=== PATIENT | female | born 1960 | race Caucasian/White ===

== ENCOUNTER 2016-09-24 23:08 | Emergency (ER) | payer OTHER ==
[~2016-09-24] VITALS: Ht 172.7 cm; Wt 77.7 kg
[~2016-09-24 23:08] MED LIST: ASPI81TA45 PO; FERR325T PO; FLEX10TA PO; GABA100C4 PO; LOSA50TA PO; METO25 PO; PREG25 PO; PREM0.3T PO; PRIL20CA PO; SIMV20 PO; TRAM50 PO
[2016-09-24 23:10] VITALS: BP 130/75; PULSE 75; RESP 16; TEMP 97.6; O2SAT 99
[2016-09-24 23:16] VITALS: BP 130/75; PULSE 75; RESP 16; TEMP 97.6; O2SAT 99
--- NOTE | 2016-09-24 23:44 | PD ---
HPI Chief Complaint: uti Time Seen by Provider: 23:41 Travel History International Travel<30 days: No Contact w/Intl Traveler<30days: No Traveled to known affect area: No History of Present Illness HPI 56-year-old female presents to the emergency department by private transportation for complaint of possible urinary tract infection. According the patient since 6 PM she's had urinary frequency urgency and dysuria. Patient reports she has history of recurrent urinary tract infections. Patient also reports she has history of stage IV kidney disease. Patient denies fever chills nausea vomiting or flank pain. Patient denies generalized abdominal pain or localized right lower quadrant left lower quadrant abdominal pain. Patient does note some suprapubic pressure with urination. No vaginal bleeding and no hematuria. Patient rates discomfort as moderate with urination. PFSH Past Medical History Narrative Medical Stage IV kidney [id number], recurrent UTI dyslipidemia hypertension GERD migraine hysterectomy tubal ligation tonsillectomy alcohol use nursing notes reviewed Autoimmune Disease: No Blood Disorders: No Heart Rhythm Problems: Yes Cancer: No Cardiovascular Problems: Yes High Cholesterol: Yes Diabetes: No Diminished Hearing: No Endocrine: No Gastrointestinal Disorders: Yes (REFLUX) GERD: Yes Genitourinary: Yes (FREQUENT UTI, URINARY INCONTINENCE) Headaches: Yes Hepatitis: No Hiatal Hernia: No Hypertension: Yes Immune Disorder: No Musculoskeletal: Yes (NECK, ARTHRITIS) Neurologic: Yes (MIGRAINES, CERVICAL SPINE HERNIATED DISK) Psychiatric: No Reproductive: Yes (HYSTERECTOMY) Respiratory: No Migraines: Yes Renal Failure: Yes (insuff. per pt) Thyroid Disease: No PNEUMOCCOCAL Vaccine (Year): 3 Menopausal: Yes Tubal Ligation: Yes Past Surgical History AICD: No Body Medical Devices: DENTAL POST Genitourinary Surgery: No Gynecologic Surgery: Yes ( TL, HYSTERECTOMY) Hysterectomy: Yes Joint Replacement: No Pacemaker: No Tonsillectomy: Yes (1967) Other Surgery: Yes Social History Alcohol Use: Yes (S) Tobacco Use: No Substance Use: No Allergies-Medications (Allergen,Severity, Reaction): Coded Allergies: Penicillin (Verified Allergy, Severe, SWELLS, 10/09/15) Sulfa (Verified Allergy, Severe, ITCH, 10/09/15) Reported Meds & Prescriptions Reported Meds & Active Scripts Active Ultram (Tramadol HCl) 50 Mg Tab 1 Tab PO Q8HR PRN FOR PAIN Reported Gabapentin 100 Mg Cap 100 Mg PO TID Lyrica (Pregabalin) 25 Mg Cap 25 Mg PO BID Prilosec 20 mg (Omeprazole) 20 Mg Cap 20 Mg PO DAILY Losartan Potassium 50 MG (Losartan Potassium) 50 Mg Tab 50 Mg PO DAILY Iron (Ferrous Sulfate) 325 Mg Tab 325 Mg PO BID Metoprolol Tartrate 25 mg (Metoprolol Tartrate) 25 Mg Tab 12.5 Mg PO BID Aspirin 81 mg EC Lo-Dose (Aspirin) 81 Mg Tab 81 Mg PO DAILY Flexeril (Cyclobenzaprine HCl) 10 Mg Tab 10 Mg PO BID Premarin (Estrogens Conjugated) 0.3 Mg Tab 0.9 Mg PO DAILY Zocor (Simvastatin) 20 Mg Tab 20 Mg PO HS Review of Systems Except as stated in HPI: all other systems reviewed are Neg General / Constitutional: No: Fever, Chills Cardiovascular: No: Chest Pain or Discomfort Respiratory: No: Shortness of Breath Gastrointestinal: No: Abdominal Pain Genitourinary: Positive: Urgency, Frequency, Dysuria, No: Hematuria, Flank Pain Musculoskeletal: No: Myalgias, Arthralgias Skin: No Rash Neurologic: No: Weakness Hematologic/Lymphatic: No: Lymph Node Enlargement Physical Exam Narrative GENERAL: Well-developed well-nourished female in acute distress no respiratory distress SKIN: Warm and dry. HEAD: Normocephalic. EYES: No scleral icterus. No injection or drainage. NECK: Supple, trachea midline. No JVD or lymphadenopathy. CARDIOVASCULAR: Regular rate and rhythm without murmurs, gallops, or rubs. RESPIRATORY: Breath sounds equal bilaterally. No accessory muscle use. GASTROINTESTINAL: Abdomen soft, non-tender, nondistended. MUSCULOSKELETAL: No cyanosis, or edema. BACK: Nontender without obvious deformity. No CVA tenderness. Data Data Last Documented VS Vital Signs Date Time Temp Pulse Resp B/P Pulse Ox O2 Delivery O2 Flow Rate FiO2 09/24/16 23:16 97.6 75 16 130/75 99 Orders Urinalysis - C+S If Indicated (09/24/16 23:39) Urine Culture (09/24/16 23:22) Nitrofurantoin Monohyd Macrocr (Macrobid (09/25/16 00:30) Phenazopyridine (Pyridium) (09/25/16 00:30) Cephalexin (Keflex) (09/25/16 00:45) Labs Laboratory Tests Test 09/24/16 23:22 Urine Collection Type CLEAN CATCH Urine Color YELLOW Urine Turbidity MARKED Urine pH 6.5 Urine Specific [place] 1.009 Urine Protein 100 mg/dL Urine Glucose (UA) NEG mg/dL Urine Ketones NEG mg/dL Urine Occult Blood LARGE Urine Nitrite NEG Urine Bilirubin NEG Urine Leukocyte Esterase LARGE Urine RBC 15-19 /hpf Urine WBC 50-99 /hpf Urine WBC Clumps MANY Urine Squamous Epithelial 0-5 /hpf Cells Urine Bacteria OCC /hpf Microscopic Urinalysis Comment CULTURE INDICATED MDM Medical Decision Making Medical Screen Exam Complete: Yes Emergency Medical Condition: Yes Medical Record Reviewed: Yes Interpretation(s) Urinalysis: Positive for leukocyte esterase positive for white blood cells white blood cells and bacteria culture indicated Differential Diagnosis Dysuria, UTI, pyelonephritis, diverticulitis, renal colic Narrative Course Urine specimen collected and sent for resulting Patient is aware of abnormal urinalysis and given first dose of oral antibiotic Macrobid and Keflex as well as Pyridium for bladder spasm patient states that she has allergy to penicillin she can take cephalexin without adverse reaction. Diagnosis Primary Impression: UTI (urinary tract infection) Referrals: Primary Care Physician 2 days Patient Instructions: General Instructions Additional Instructions: Increase fluid hydration Follow-up with primary care provider and manager emergency department Return to the emergency for any concerns or change in condition Take acetaminophen/Tylenol every 4 hours as needed for fever 100.4F or greater Med/Other Pt SpecificInfo: Prescription(s) given Scripts Phenazopyridine (Pyridium)100 Mg [id number] Mg PO Q8H PRN (DYSURIA) #6 TAB Ref 0 Prov:Patsy Johnson MD 09/25/16 Nitrofurantoin Monohydrate Macrocrystals (Macrobid)100 Mg [id number] Mg PO BID 10 Days Ref 0 Prov:Patsy Johnson MD 09/25/16 Cephalexin (Keflex)500 Mg [id number] Mg PO Q6H 7 Days Ref 0 Prov:Patsy Johnson MD 09/25/16 Disposition: 01 DISCHARGE HOME Condition: Stable Patsy Johnson MD Sep 24, 2016 23:44
[2016-09-25 00:04] LABS: BLOOD, URINE LARGE (NEG); GLUCOSE,URINE NEG (NEG); KETONE, URINE NEG (NEG); NITRITE,URINE NEG (NEG); PH, URINE 6.5 (5.0-8.5)
[2016-09-25 00:11] LABS: METHOD OF COLLECTION CLEAN CATCH; URINE COLOR YELLOW (YELLW/STRAW)
[2016-09-25 00:12] LABS: BACTERIA, URINE OCC /hpf; RBC, URINE 15-19 /hpf (0-3); SQUAMOUS EPITHELIAL CELL URINE 0-5 /hpf (0-5)
[2016-09-25 00:13] LABS: COMMENT (UR) CULTURE INDICATED; CULTURE IF INDICATED CULTURE INDICATED
[2016-09-25] MEDS ORDERED: NITROFURANTOIN MONOHYD MACROCR 100 MG CAP PO ONE (00:30)
[2016-09-25] MEDS ORDERED: PHENAZOPYRIDINE HCL 100 MG TAB PO ONE (00:30)
[2016-09-25] MEDS ORDERED: CEPH-460 PO (00:36)
[2016-09-25] MEDS ORDERED: MACR100C2 PO (00:36)
[2016-09-25] MEDS ORDERED: PHEN0.4T PO (00:36)
[2016-09-25] MEDS ORDERED: CEPHALEXIN MONOHYDRATE 500 MG CAP PO ONE (00:45)
== END 2016-09-25 01:11 | disposition home or self-care (01) ==
LOC: PHED 23:08
DX: N39.0 Urinary tract infection, site not specified (principal); B96.89 Other specified bacterial agents as the cause of diseases classified elsewhere
CPT/HCPCS: 81001; 87086; 99283

== ENCOUNTER 2016-11-26 17:02 | Emergency (ER) | payer OTHER ==
[~2016-11-26] VITALS: Ht 172.7 cm; Wt 78.6 kg
[~2016-11-26 17:02] MED LIST changes: +CEPH-460 PO; -FLEX10TA PO; -GABA100C4 PO; +MACR100C2 PO; +PHEN0.4T PO; -TRAM50 PO
[2016-11-26 17:23] VITALS: BP 150/90; PULSE 66; RESP 18; TEMP 98.4; O2SAT 99
[2016-11-26] MEDS ORDERED: PROCHLORPERAZINE INJ 10 MG/2 ML VIAL IV PUSH ONE (17:45)
[2016-11-26] MEDS ORDERED: diphenhydrAMINE HCL 50 MG/ML VIAL IV PUSH ONE (17:45)
--- NOTE | 2016-11-26 17:57 | PD ---
HPI . Eye pain Chief Complaint: Eye Problems/Injury Time Seen by Provider: 17:38 Travel History International Travel<30 days: No Contact w/Intl Traveler<30days: No Traveled to known affect area: No History of Present Illness HPI Patient presents with an injury to her right eye and with a migraine headache. She states it all started a few hours ago when she inadvertently got some sunscreen in her right eye. She wears contacts. She immediately removed the contact. However, she scraped her eye as she was reading the contact. She states that she has subsequently developed a migraine headache. This is affecting the vision in her left eye. PFSH Past Medical History Autoimmune Disease: No Blood Disorders: No Heart Rhythm Problems: Yes Cancer: No Cardiovascular Problems: Yes High Cholesterol: Yes Diabetes: No Diminished Hearing: No Endocrine: No Gastrointestinal Disorders: Yes (REFLUX) GERD: Yes Genitourinary: Yes (FREQUENT UTI, URINARY INCONTINENCE) Headaches: Yes Hepatitis: No Hiatal Hernia: No Hypertension: Yes Immune Disorder: No Musculoskeletal: Yes (NECK, ARTHRITIS) Neurologic: Yes (MIGRAINES, CERVICAL SPINE HERNIATED DISK) Psychiatric: No Reproductive: Yes (HYSTERECTOMY) Respiratory: No Immunizations Current: No Migraines: Yes Renal Failure: Yes (STAGE 4/WILL BE PLACED ON LIST) Thyroid Disease: No PNEUMOCCOCAL Vaccine (Year): 3 Menopausal: Yes Tubal Ligation: Yes Past Surgical History AICD: No Body Medical Devices: DENTAL POST Genitourinary Surgery: No Gynecologic Surgery: Yes Hysterectomy: Yes Joint Replacement: No Pacemaker: No Tonsillectomy: Yes (1967) Other Surgery: Yes Social History Alcohol Use: No Tobacco Use: No Substance Use: No Allergies-Medications (Allergen,Severity, Reaction): Coded Allergies: Penicillin (Verified Allergy, Severe, SWELLS, 09/25/16) Sulfa (Verified Allergy, Severe, ITCH, 09/25/16) Reported Meds & Prescriptions Reported Meds & Active Scripts Active Pyridium (Phenazopyridine HCl) 100 Mg Tab 100 Mg PO Q8H PRN Macrobid (Nitrofurantoin Monoh/Nitrofur Macro) 100 Mg Cap 100 Mg PO BID 10 Days Keflex (Cephalexin) 500 Mg Cap 500 Mg PO Q6H 7 Days Reported Lyrica (Pregabalin) 25 Mg Cap 25 Mg PO BID Prilosec 20 mg (Omeprazole) 20 Mg Cap 20 Mg PO DAILY Losartan Potassium 50 MG (Losartan Potassium) 50 Mg Tab 50 Mg PO DAILY Iron (Ferrous Sulfate) 325 Mg Tab 325 Mg PO BID Metoprolol Tartrate 25 mg (Metoprolol Tartrate) 25 Mg Tab 12.5 Mg PO BID Aspirin 81 mg EC Lo-Dose (Aspirin) 81 Mg Tab 81 Mg PO DAILY Premarin (Estrogens Conjugated) 0.3 Mg Tab 0.9 Mg PO DAILY Zocor (Simvastatin) 20 Mg Tab 20 Mg PO HS Review of Systems Except as stated in HPI: all other systems reviewed are Neg General / Constitutional: No: Fever Eyes: Positive: Blurred Vision, Photophobia, Foreign Body Sensation (left thigh ), Pain (both eyes) HENT: Positive: Headaches Physical Exam Narrative GENERAL: Patient is wearing sunglasses in a darkened exam room. SKIN: Warm and dry. CARDIOVASCULAR: Regular rate and rhythm. RESPIRATORY: No accessory muscle use. MUSCULOSKELETAL: No obvious deformities. No edema. NEUROLOGICAL: Awake and alert. No obvious cranial nerve deficits. Motor grossly within normal limits. Normal speech. PSYCHIATRIC: Appropriate mood and affect; insight and judgment normal. Please see the PA's note for her eye exam. Data Data Last Documented VS Vital Signs Date Time Temp Pulse Resp B/P Pulse Ox O2 Delivery O2 Flow Rate FiO2 11/26/16 17:23 98.4 66 18 150/90 99 Orders ^ Saline Lock (11/26/16 17:40) Prochlorperazine Inj (Compazine Inj) (11/26/16 17:45) Diphenhydramine Inj (Benadryl Inj) (11/26/16 17:45) MDM Medical Decision Making Medical Screen Exam Complete: Yes Emergency Medical Condition: Yes Differential Diagnosis Differential diagnosis of headache includes but is not limited to migraine, muscle contraction headache, brain tumor, brain bleed Differential diagnosis of eye pain includes but is not limited to conjunctivitis , chemical irritation, corneal abrasion, acute angle-closure glaucoma. Narrative Course Patient presents with 2 problems. First problem is that she has injured her left eye. The second is that she has subsequently developed a migraine headache. I will treat the migraine first. The eye injury will then be evaluated by the PA. Diagnosis Primary Impression: Headache Qualified Code: R51 - Acute nonintractable headache, unspecified headache type Cary Ho MD Nov 26, 2016 17:57
[2016-11-26] MEDS ORDERED: IRON18TA2 PO (18:09)
[2016-11-26] MEDS ORDERED: CYCL5TAB PO (18:09)
[2016-11-26] MEDS ORDERED: METO25TA3 PO (18:09)
[2016-11-26] MEDS ORDERED: PRIL20CA9 PO (18:09)
[2016-11-26] MEDS ORDERED: ASPI-110 PO (18:09)
[2016-11-26] MEDS ORDERED: BUTA1CAP PO (18:09)
[2016-11-26] MEDS ORDERED: PREG25 PO (18:09)
[2016-11-26] MEDS ORDERED: ESTR.9 PO (18:09)
[2016-11-26] MEDS ORDERED: LOSA50TA PO (18:09)
[2016-11-26] MEDS ORDERED: SIMV20TA PO (18:09)
--- NOTE | 2016-11-26 18:39 | PD ---
Physical Exam Time Seen by Provider: 18:38 Narrative I was asked by Dr. Ho to perform a fluorescein staining to look for corneal abrasion. Data Data Last Documented VS Vital Signs Date Time Temp Pulse Resp B/P Pulse Ox O2 Delivery O2 Flow Rate FiO2 11/26/16 17:23 98.4 66 18 150/90 99 Orders ^ Saline Lock (11/26/16 17:40) Prochlorperazine Inj (Compazine Inj) (11/26/16 17:45) Diphenhydramine Inj (Benadryl Inj) (11/26/16 17:45) Eye Irrigation (11/26/16 18:44) MDM Medical Record Reviewed: Yes Supervised Visit with CHHAYA: No Differential Diagnosis chemical eye irritation, corneal abrasion, less likely bacterial conjunctivitis Narrative Course I was asked by Dr. Ho to perform a fluorescein staining to look for corneal abrasion. Eye was anesthetized with proparacaine. stain was applied. There was a corneal abrasion visualized. Eye was flushed with 1l saline via Judah lens. Patient tolerated without incident. Verbalized feeling better after procedure. Diagnosis Primary Impression: Headache Qualified Code: R51 - Acute nonintractable headache, unspecified headache type Additional Impression: Corneal abrasion due to contact lens Qualified Code: H18.821 - Corneal abrasion due to contact lens, right Additional Instruction: Please follow-up with an tank car inspector within the next 2-3 days. Use antibiotic eyedrops as prescribed. Return to the emergency department first any sudden onset of pain in this eye or visual changes. Med/Other Pt SpecificInfo: Prescription(s) given Disposition: 01 DISCHARGE HOME Condition: Stable Mireya Carrington Nov 26, 2016 18:39
[2016-11-26] MEDS ORDERED: OCUF0.3D RIGHT EYE (19:28)
[2016-11-26] MEDS ORDERED: NORC5TAB PO (19:32)
== END 2016-11-26 19:43 | disposition home or self-care (01) ==
LOC: PHEFT 17:02
DX: H18.821 Corneal disorder due to contact lens, right eye (principal); R51 Headache; I10 Essential (primary) hypertension; N19 Unspecified kidney failure; E78.00 Pure hypercholesterolemia, unspecified; X58.XXXA Exposure to other specified factors, initial encounter; Z86.79 Personal history of other diseases of the circulatory system; Z87.19 Personal history of other diseases of the digestive system; Z87.448 Personal history of other diseases of urinary system; Z87.39 Personal history of other diseases of the musculoskeletal system and connective tissue; Z86.69 Personal history of other diseases of the nervous system and sense organs
CPT/HCPCS: 96374; 96375; 99283; J0780; J1200